=== PATIENT | male | born 1985 | race Caucasian/White ===

== ENCOUNTER 2018-05-16 20:53 | Emergency (ER) | payer OTHER ==
[~2018-05-16] VITALS: Ht 180.3 cm; Wt 123.7 kg
--- NOTE | 2018-05-16 21:16 | NUR ---
PT. IS A & O X 4 WITH C/O LEFT TESTICULAR PAIN AND SWELLING THAT BEGAN TODAY. PT. DENIES TRAUMA OR WORK/SPORTS RELATED INJURY. PT. STATES HIS "EJACULATE" IS RED. PT. STATES HIS SYMPTOMS STARTED TODAY AND HE DENIES ANY URINARY SYMPTOMS. SIDERAILS ARE UP X 2 WITH THE CALL LIGHT IN PLACE.
[2018-05-16 22:15] LABS: MICROSCOPIC NOT IND
[2018-05-16 22:23] LABS: CULTURE INDICATED? NO
--- NOTE | 2018-05-16 22:42 | NUR ---
PT. IS RESTING AT THIS TIME. NO CONCERNS.
[2018-05-16 23:36] VITALS: BP 150/97
== END 2018-05-16 23:44 | disposition home or self-care (01) ==
LOC: ED 22:42
DX: N45.1 Epididymitis (principal); F12.10 Cannabis abuse, uncomplicated
CPT/HCPCS: 76870; 81003; 87491; 87591; 99284